=== PATIENT | male | born 1980 | race Caucasian/White ===

== ENCOUNTER 2020-05-01 20:42 | Emergency (ER) | payer BC ==
[~2020-05-01] VITALS: Ht 190.5 cm; Wt 119.0 kg
--- NOTE | 2020-05-01 22:10 | NUR ---
pt c/o numbness with minimal pressure applied, says 'feels like it's asleep' increasing muscle twitching bilaterally over past several months. says 'wakes up in morning with calf tightening and feels like it's hard to walk'
[2020-05-02 01:28] LABS: ALANINE AMINOTRANSFERASE 108 U/L (12-78); ALBUMIN 4.3 G/DL (3.4-5.0); ALBUMIN/GLOBULIN RATIO 1.1 (1.1-1.5); ALKALINE PHOSPHATASE 50 IU/L (46-116); ANION GAP 8 (8-16); ASPARTATE AMINO TRANSFERASE 41 U/L (10-37); BILIRUBIN,TOTAL 0.5 MG/DL (0.1-1.0); BLOOD UREA NITROGEN 12 MG/DL (7-18); BUN/CREATININE RATIO 9.8 (5.4-32.0); CALCIUM 8.9 MG/DL (8.5-10.1); CHLORIDE 106 MMOL/L (99-107); CREATININE 1.22 MG/DL (0.60-1.10); GLUCOSE 94 MG/DL (70-104); SODIUM 142 MMOL/L (135-145); TOTAL CARBON DIOXIDE 27.8 MMOL/L (24-32); TOTAL PROTEIN 8.3 G/DL (6.4-8.2); eGFR 67 ML/MIN
[2020-05-02 01:38] LABS: POTASSIUM 4.3 MMOL/L (3.5-5.1)
[2020-05-02 01:41] LABS: C-REACTIVE PROTEIN 0.15 MG/DL (0.0-0.5); ETHANOL < 0.010 GM/DL (0.0-0.010); MAGNESIUM 2.2 MG/DL (1.5-2.4)
[2020-05-02 01:42] LABS: FERRITIN 120 NG/ML (26-388); LACTATE DEHYDROGENASE 330 U/L (85-227)
[2020-05-02 02:01] LABS: PARTIAL THROMBOPLASTIN TIME 27 SECONDS (22-32)
[2020-05-02 02:04] VITALS: BP 147/102
[2020-05-02 02:09] LABS: URINE AMPHETAMINE SCREEN NEGATIVE (Neg); URINE BARBITUATE SCREEN NEGATIVE (Neg); URINE BENZODIAZEPINES SCREEN NEGATIVE (Neg); URINE CANNABINOID SCREEN POSITIVE (Neg); URINE COCAINE SCREEN NEGATIVE (Neg); URINE METHADONE SCREEN NEGATIVE (Neg); URINE OPIATE SCREEN NEGATIVE (Neg); URINE PHENCYCLIDINE SCREEN NEGATIVE (Neg)
[2020-05-02 02:17] LABS: BASOPHILS # (AUTO) 0.1 X10'3 (0-0.2); BASOPHILS % (AUTO) 0.5 % (0-1); EOSINOPHILS # (AUTO) 0.4 X10'3 (0-0.9); HEMATOCRIT 47.8 % (42.0-52.0); HEMOGLOBIN 16.2 g/dl (14.0-17.9); LYMPHOCYTES # (AUTO) 3.2 X10'3 (1.1-4.8); LYMPHOCYTES % (AUTO) 27.3 % (21-51); MEAN CORPUSCULAR HGB CONC 33.9 g/dL (33.0-36.5); MEAN CORPUSCULAR VOLUME 88.5 FL (78-98); MEAN PLATELET VOLUME 9.2 FL (7.4-10.4); MONOCYTES # (AUTO) 1.1 X10'3 (0-0.9); MONOCYTES % (AUTO) 9.1 % (2-12); NEUTROPHILS # (AUTO) 7.1 X10'3 (1.8-7.7); NEUTROPHILS % (AUTO) 60.1 % (42-75); PLATELET COUNT 251 X10'3 (140-440); RED CELL DISTRIBUTION WIDTH 12.8 % (11.5-14.5); WHITE BLOOD COUNT 11.8 X10'3 (4.5-11.0)
[2020-05-02 02:42] LABS: CLARITY,URINE CLEAR (Clear); COLOR,URINE YELLOW (Yellow); GLUCOSE, URINE NEGATIVE (Neg); KETONES,URINE NEGATIVE (Neg); LEUKOCYTE ESTERASE ,URINE NEGATIVE (Neg); NITRITES, URINE NEGATIVE (Neg); OCCULT BLOOD,URINE NEGATIVE (Neg); PH,URINE 6.5 (4.8-8.0); PROTEIN,URINE NEGATIVE (Neg); UROBILINOGEN,URINE 0.2 E.U/dL (0.2-1.0)
[2020-05-02 02:46] LABS: UA COLLECTION TYPE CLN CATCH MIDSTREAM
== END 2020-05-02 03:51 | disposition home or self-care (01) ==
LOC: ER 20:43
DX: T43.611A Poisoning by caffeine, accidental (unintentional), initial encounter (principal); R20.0 Anesthesia of skin; R25.3 Fasciculation; R53.83 Other fatigue; F12.90 Cannabis use, unspecified, uncomplicated; Z98.890 Other specified postprocedural states; Y92.89 Other specified places as the place of occurrence of the external cause
CPT/HCPCS: 36415; 80053; 80305; 80320; 81003; 82728; 83615; 83735; 84145; 84443; 84484; 85025; 85384; 85610; 85730; 86140; 93005; 99284